=== PATIENT | female | born 1980 | race Caucasian/White ===

== ENCOUNTER → 2017-10-23 | Outpatient (CLI) | payer OTHER ==
[~2017-10-23] MED LIST: IBUP800 PO; LABE100 PO; Synthroid25 MCG PO; Verotin-Gr Cap1 EACH
== END | disposition home or self-care (01) ==
LOC: PLD 13:38 → LAB SHORT 13:38
DX: D48.5 Neoplasm of uncertain behavior of skin (principal)
CPT/HCPCS: 88305